=== PATIENT | male | born 1945 | race Caucasian/White ===

== ENCOUNTER → 2018-11-08 | Outpatient (CLI) | payer MEDICARE, OTHER ==
[2018-11-08 17:22] LABS: BILIRUBIN,DIRECT 0.2 MG/DL (0.0-0.3); BILIRUBIN,INDIRECT 0.3 MG/DL; BILIRUBIN,TOTAL 0.5 MG/DL (0.1-1.0)
[2018-11-08 17:23] LABS: ALBUMIN 4.2 GM/DL (3.2-4.5); TOTAL PROTEIN 7.5 GM/DL (6.4-8.2)
== END ==
LOC: LAB FS 15:16
PROVIDERS: ATTEND Podiatrist Foot & Ankle Surgery
DX: B35.1 Tinea unguium (principal)
CPT/HCPCS: 36415; 80076

== ENCOUNTER → 2020-02-08 | Outpatient (CLI) | payer MEDICARE, OTHER ==
--- NOTE | 2020-02-08 16:42 | Diagnostic Imaging Report ---
PROCEDURE: MRI left joint lower extremity without contrast. TECHNIQUE: Multiplanar, multisequence non contrast-enhanced MRI of the left lower extremity was accomplished. INDICATION: Pain in the left Achilles tendon. History of contralateral right Achilles rupture. COMPARISON: None FINDINGS: No acute fracture is seen in the left ankle. Alignment is normal. There is no joint effusion. The anterior and posterior syndesmotic ligaments are intact. The anterior and posterior talofibular ligaments are intact. The calcaneofibular ligament is suboptimally seen, but appears to be intact as well. The deep fibers of the deltoid ligament demonstrate calcification, which may be from remote trauma. No tear is seen in the spring ligament. The plantar fascia is not thickened. The sinus tarsi demonstrates normal fatty signal. There is a complete tear of the Achilles tendon, with approximately 2 cm of retraction. The distal stump is located about 7 cm from the calcaneal insertion. There is significant tendinosis in the Achilles tendon. The flexor tendons are intact. The peroneal tendons appear intact. The extensor tendons are intact. No muscular atrophy is seen. No masses or fluid collections are seen. There is severe subcutaneous edema about the ankle. IMPRESSION: 1. Complete tear of the Achilles tendon with mild retraction. 2. Severe nonspecific subcutaneous edema about the ankle. Dictated by: Dictated on workstation # [id number]
== END ==
LOC: RAD 15:17
PROVIDERS: ATTEND Podiatrist Foot & Ankle Surgery
DX: S86.012A Strain of left Achilles tendon, initial encounter (principal); X58.XXXA Exposure to other specified factors, initial encounter
CPT/HCPCS: 73721

== ENCOUNTER 2022-09-07 04:10 | Emergency (ER) | payer MEDICARE, OTHER ==
[2022-09-07] MEDS ORDERED: ANTACID SUSP 30 ML UDC (MYLANTA) PO ONE (04:30)
[2022-09-07] MEDS ORDERED: LIDOCAINE 2% VISCOUS 15 ML UDC PO ONE (04:30)
--- NOTE | 2022-09-07 04:33 | ED Abdominal Pain ---
General Chief Complaint: Abdominal/GI Problems Stated Complaint: PAIN UPPER RIGHT SHOULDER Nursing Triage Note: Pt complaining of epigastric pain and excessive belching Source of Information: Patient, Spouse History of Present Illness Date Seen by Provider: Sep 07, 2022 Time Seen by Provider: 04:14 Initial Comments 77-year-old male presenting with complaints of increased belching and epigastric pain going into the left chest since 1430. He denies eating or drinking anything different prior to this happening. His reports that he has been having episodes of vomiting for several hours at a time. His last episode like this was at the beginning of August. Patient reports he feels like the vomiting had gotten better when he was drinking more fluids and water. He has not followed up with the clinic for any of these episodes of vomiting. He denies any fever, chills, nausea or vomiting currently. He has had several bowel movements that were normal and consistency and not black or tarry in the last 24 hours. He denies having pain or burning with urination or seeing any blood in his stool or urine. He has not been coughing or having shortness of breath. When he lays down he had more of the pressure and sensation like he needed to belch. He had been uncomfortable all night so finally they came to the emergency department at after 13 hours of symptoms. He reports that the belching and epigastric pain has been constant since onset around 0 on TuesdaySeptember 06. Timing/Duration: 12-24 Hours Severity/Quality: Moderate, Full Radiation: Chest (left chest) Activities at Onset: None Modifying Factors: Worsens With Lying down; Improves With Other (belching helps the full sensation) Associated Symptoms: No Back Pain, No Diaphoresis, No Fever/Chills, No Fatigue, No Headache, No Heartburn, No Nausea/Vomiting, No Rash, No Shortness of Air, No Swelling/Mass in Abdomen, No Syncope, No Weakness Allergies and Home Medications Allergies Coded Allergies: No Known Drug Allergies (Unverified , 09/07/22) Patient Home Medication List Home Medication List Reviewed: Yes Sucralfate (Sucralfate) 1 Gram Tablet, 1 GM PO ACHS Prescribed by: DEBRA MCLEAN on 09/07/22 0620 Review of Systems Review of Systems Constitutional: No chills, No fever EENTM: No Symptoms Reported Respiratory: Denies Cough, Denies Shortness of Air Cardiovascular: See HPI; Denies Lightheadedness, Denies Palpitations Gastrointestinal: See HPI Genitourinary: No Symptoms Reported Musculoskeletal: no symptoms reported Skin: no symptoms reported Psychiatric/Neurological: No Symptoms Reported Past Kyfoulx-Alcvpo-Pwjizz Hx Patient Social History Tobacco Use?: No Use of E-Cig and/or Vaping dev: No Substance use?: No Alcohol Use?: No Pt feels they are or have been: No Past Medical History Surgery/Hospitalization HX: Hypertension, hyperlipidemia, GERD Surgeries: Yes Eye Surgery Physical Exam Vital Signs Vital Signs - First Documented 09/07/22 04:15 Pulse 50 Resp 18 B/P (MAP) 173/68 (103) Pulse Ox 97 O2 Delivery Room Air Capillary Refill : Less Than 3 Seconds Height/Weight/BMI Height: '" Weight: lbs. oz. kg; BMI Method: General Appearance: WD/WN, no apparent distress Respiratory: chest non-tender, lungs clear, normal breath sounds, no respiratory distress, no accessory muscle use Cardiovascular: normal peripheral pulses, regular rate, rhythm Gastrointestinal: normal bowel sounds, soft, no pulsatile mass; No distended, No guarding, No rebound; tenderness (Increased pressure and fullness with palpation over the epigastric area of the abdomen) Rectal: deferred Extremities: normal range of motion, non-tender, normal capillary refill Neurologic/Psychiatric: automobile bumper straightener II-XII nml as tested, alert, oriented x 3 Skin: normal color, warm/dry Images 1 - Increased fullness sensation with palpation over the epigastric area Progress/Results/Core Measures Results/Orders Lab Results Laboratory Tests Test 09/07/22 05:10 Range/Units White Blood Count 14.2 H 4.3-11.0 10^3/uL Red Blood Count 4.86 4.30-5.52 10^6/uL Hemoglobin 15.3 13.3-17.7 g/dL Hematocrit 45 40-54 % Mean Corpuscular Volume 93 80-99 fL Mean Corpuscular Hemoglobin 32 25-34 pg Mean Corpuscular Hemoglobin Concent 34 32-36 g/dL Red Cell Distribution Width 13.1 10.0-14.5 % Platelet Count 221 130-400 10^3/uL Mean Platelet Volume 9.4 9.0-12.2 fL Immature Granulocyte % (Auto) 1 % Neutrophils (%) (Auto) 85 H 42-75 % Lymphocytes (%) (Auto) 9 L 12-44 % Monocytes (%) (Auto) 4 0-12 % Eosinophils (%) (Auto) 1 0-10 % Basophils (%) (Auto) 1 0-10 % Neutrophils # (Auto) 12.0 H 1.8-7.8 10^3/uL Lymphocytes # (Auto) 1.3 1.0-4.0 10^3/uL Monocytes # (Auto) 0.6 0.0-1.0 10^3/uL Eosinophils # (Auto) 0.2 0.0-0.3 10^3/uL Basophils # (Auto) 0.1 0.0-0.1 10^3/uL Immature Granulocyte # (Auto) 0.1 0.0-0.1 10^3/uL Neutrophils % (Manual) 93 % Lymphocytes % (Manual) 6 % Monocytes % (Manual) 1 % Prothrombin Time 12.7 12.2-14.7 SEC INR Comment 0.9 0.8-1.4 Activated Partial Thromboplast Time 33 24-35 SEC Sodium Level 134 L 135-145 MMOL/L Potassium Level 4.8 3.6-5.0 MMOL/L Chloride Level 100 98-107 MMOL/L Carbon Dioxide Level 25 21-32 MMOL/L Anion Gap 9 5-14 MMOL/L Blood Urea Nitrogen 12 7-18 MG/DL Creatinine 0.97 0.60-1.30 MG/DL Estimat Glomerular Filtration Rate 79 BUN/Creatinine Ratio 12 Glucose Level 194 H 70-105 MG/DL Calcium Level 9.5 8.5-10.1 MG/DL Corrected Calcium 9.7 8.5-10.1 MG/DL Magnesium Level 1.8 1.6-2.4 MG/DL Total Bilirubin 0.6 0.1-1.0 MG/DL Aspartate Amino Transf (AST/SGOT) 20 5-34 U/L Alanine Aminotransferase (ALT/SGPT) 24 0-55 U/L Alkaline Phosphatase 115 40-136 U/L Troponin I < 0.30 <0.30 NG/ML Pro-B-Type Natriuretic Peptide 272.0 <450.0 PG/ML Total Protein 6.9 6.4-8.2 GM/DL Albumin 3.8 3.2-4.5 GM/DL Lipase 34 8-78 U/L My Orders Orders - DEBRA MCLEAN MD Lidocaine 2% Viscous 15 Ml (Xylocaine Vi (09/07/22 04:30) Antacid Suspension (Mylanta Suspension (09/07/22 04:30) Acute Abd Series (09/07/22 04:26) Lidocaine 2% Viscous 15 Ml (Xylocaine Vi (09/07/22 04:35) Antacid Suspension (Mylanta Suspension (09/07/22 04:35) Cbc With Automated Diff (09/07/22 05:08) Magnesium (09/07/22 05:08) Ekg Tracing (09/07/22 05:08) Comprehensive Metabolic Panel (09/07/22 05:08) Protime With Inr (09/07/22 05:08) Partial Thromboplastin Time (09/07/22 05:08) Monitor-Rhythm Ecg Trace Only (09/07/22 05:08) Ed Iv/Invasive Line Start (09/07/22 05:08) Lipase (09/07/22 05:08) Troponin I Fs (09/07/22 05:08) Probnp Fs (09/07/22 05:08) Pantoprazole Injection (Protonix Injecti (09/07/22 05:08) Ketorolac Injection (Toradol Injection) (09/07/22 05:08) Manual Differential (09/07/22 05:10) Sucralfate Tablet (Carafate Tablet) (09/07/22 06:17) Medications Given in ED Current Medications Medications Dose Ordered Sig/Ruby Route Start Time Stop Time Status Last Admin Dose Admin Al Hydrox/Mg Hydrox/Simethicone 30 ml ONCE ONCE PO 09/07/22 04:30 09/07/22 04:31 DC 09/07/22 04:36 30 ML Lidocaine HCl 15 ml ONCE ONCE PO 09/07/22 04:30 09/07/22 04:31 DC 09/07/22 04:36 15 ML Vital Signs/I&O 09/07/22 09/07/22 04:15 06:08 Pulse 50 54 Resp 18 18 B/P (MAP) 173/68 (103) 151/58 Pulse Ox 97 94 O2 Delivery Room Air Room Air Blood Pressure Mean: 103 Progress Progress Note #1: Progress Note Potential diagnosis of GERD with esophagitis, esophageal spasms, hiatal hernia, bowel obstruction, colitis, diverticulitis, cholecystitis, myocardial infarction, congestive heart failure, acute coronary syndrome. As the symptoms have been present for almost 14 hours and have been constant will start with an acute abdomen series and a GI cocktail to see if it looks like he had evidence of a hiatal hernia and/or improvement with GI cocktail. If he does not have any acute improvement or acute significant abnormality on his imaging we will add on peripheral IV access and check labs to look at blood count, comprehensive metabolic profile, lipase, troponin, proBNP and obtain el ectrocardiogram. However since his pain has been present for so long I would expect if he was having acute coronary syndrome or myocardial infarction he would have had worsening symptoms or change in his vital signs by now. Progress Note #2: Time: 05:00 Progress Note On my personal interpretation and review of his acute abdomen series I did not appreciate any gastric air bubble in his chest indicating a hiatal hernia. Also did not appreciate any bowel obstruction or signs of free air or perforation. Patient reported that after the GI cocktail his discomfort and pressure in the chest was better but is still had pressure and fullness in his epigastric and left upper quadrant area of his abdomen. With him continuing to have symptoms although they are better will add on an electrocardiogram and labs as discussed above. We will administer Protonix 40 mg IV in addition to Toradol 15 mg IV to see if that helps with his discomfort and pressure. Since he has had symptoms for over 14 hours a single troponin would be a delta troponin for him since he has had constant discomfort for more than 6 hours. Progress Note #3: Time: 05:51 Progress Note Complete blood count showed mild elevation of his white blood cells to 14.2 but he did not have a left shift. His hemoglobin was normal at 15.3 and platelets at 221. His comprehensive metabolic panel did not show any acute significant electrolyte abnormality other than he did have an elevated glucose of 194. His troponin was less than 0.3 and negative. His proBNP was normal at 272. His lipase was not normal at 34 not elevated to indicate pancreatitis. As patient was resting in the room after he had received the Protonix and Toradol he did have his oxygen saturation dipping down to 89 to 90% which might indicate some obstructive sleep apnea. When he was awoken his oxygen immediately came back up to mid to upper 90s. We will reassure patient and spouse that we did not see any evidence of acute myocardial infarction or heart attack or heart failure. He does have the elevated glucose so we will encourage him to follow-up with the clinic as they may want to do fasting labs or get additional testing. He may also benefit from an EGD to look for signs of peptic ulcer disease or esophagitis. If his symptoms persist or worsen he may return in a CT scan might be helpful to look for signs of intra-abdominal pathology. However with his symptoms improving with treatment and only finding a mild elevation of his white count and glucose on his labs and felt that he was safe to be discharged home and could complete any further work-up as an outpatient with his primary care provider. Initial ECG Impression Date: Sep 07, 2022 Initial ECG Impression Time: 05:12 Initial ECG Rate: 50 Initial ECG Rhythm: S.Bandar Initial ECG Comparisson: No Previous ECG Available Comment On my personal interpretation and review his initial electrocardiogram shows sinus bradycardia with a heart rate of 50 bpm. VA interval [address] elevation however he does have some global T wave flattening. QT interval 455 ms with a QTc interval 429 ms. He has no prior tracings available for comparison. Diagnostic Imaging Diagonstic Imaging: Xray Plain Films/CT/US/NM/MRI: chest, abdomen Comments [facility]. [place], [place] NAME: ALICIA GARCIA [facility] REC#: [id number] PT STATUS: REG ER : 1945 PHYSICIAN: DEBRA MCLEAN MD ADMIT DATE: 09/07/22/ER FS Draft Date of Exam:09/07/22 ACUTE ABD SERIES HISTORY: Left upper quadrant pain TECHNIQUE: Frontal view of the chest. Supine and upright frontal views of the abdomen COMPARISON: None FINDINGS: Lung volumes are normal. No consolidation is seen. There is no pleural effusion or pneumothorax. The cardiac silhouette is normal in size. The bowel loops are nonspecific, but no high-grade distention is appreciated. No large collection of free air seen. Overall, the stool burden appears low. A surgical clip is noted in the pelvis. No acute osseous abnormality is seen. IMPRESSION: 1. Nonspecific bowel gas pattern with no acute abdominal abnormality seen. 2. No acute pulmonary abnormality. Dictated on workstation # [id number] Dict: 09/07/22 0556 Trans: 09/07/22 0602 GILBERTO [id number] Interpreted by: LETA GAITAN MD Electronically signed by: Reviewed: Reviewed by Me Departure Impression Primary Impression: Belching Additional Impressions: Epigastric abdominal pain Elevated glucose Disposition: HOME, SELF-CARE Condition: Improved Departure-Patient Inst. Decision time for Depature: 06:18 Referrals: KATIE AGOSTO MD (PCP/Family) Primary Care Physician Patient Instructions: Acid Reflux, Adult and Adolescent ED, Gastritis ED, Guide to Eating When You Have Diabetes, Prediabetes (DC), Ulcer and Gastritis Diet Add. Discharge Instructions: Your labs did show mild elevation of your sugar up to 194. Usually fasting this should be less than 110. The elevated sugar might be contributing to your episodes of vomiting and discomfort in your epigastric and stomach area. Check back with the clinic as they may need to set you up for additional testing or medication to try and help with the high sugar. They may also want to have you see a surgeon for an EGD where they run a camera down your throat to look for signs of ulcers or irritation to the stomach and esophagus lining. Follow a low-fat bland diet. If you are having worsening symptoms or uncontrollable vomiting then return for repeat evaluation. Otherwise call the clinic on Tuesday to arrange a follow- up appointment for additional work-up as an outpatient. All discharge instructions reviewed with patient and/or family. Voiced understan stephen. Scripts Sucralfate (Sucralfate) 1 Gram Tablet 1 GM PO ACHS for Gastritis for 14 Days, #56 TAB 1 Refill Chew tablet to a slurry and then swallow Prov: DEBRA MCLEAN MD 09/07/22 DEBRA MCLEAN MD Sep 07, 2022 04:32
[2022-09-07] MEDS ORDERED: ANTACID SUSP 30 ML UDC (MYLANTA) ONE (04:35)
[2022-09-07] MEDS ORDERED: LIDOCAINE 2% VISCOUS 15 ML UDC ONE (04:35)
[2022-09-07] MEDS ORDERED: KETOROLAC 15 MG/ML VIAL IVP STA (05:08)
[2022-09-07] MEDS ORDERED: PANTOPRAZOLE 40 MG (PROTONIX) VIAL IV STA (05:08)
[2022-09-07 05:19] LABS: BASOPHILS # (AUTO) 0.1 10^3/uL (0.0-0.1); BASOPHILS % (AUTO) 1 % (0-10); EOSINOPHILS # (AUTO) 0.2 10^3/uL (0.0-0.3); EOSINOPHILS % (AUTO) 1 % (0-10); HEMATOCRIT 45 % (40-54); HEMOGLOBIN 15.3 g/dL (13.3-17.7); LYMPHOCYTES # (AUTO) 1.3 10^3/uL (1.0-4.0); LYMPHOCYTES % (AUTO) 9 % (12-44); MEAN CORPUSCULAR HEMOGLOBIN 32 pg (25-34); MEAN CORPUSCULAR HGB CONC 34 g/dL (32-36); MEAN CORPUSCULAR VOLUME 93 fL (80-99); MEAN PLATELET VOLUME 9.4 fL (9.0-12.2); MONOCYTES # (AUTO) 0.6 10^3/uL (0.0-1.0); MONOCYTES % (AUTO) 4 % (0-12); NEUTROPHILS % (AUTO) 85 % (42-75); PLATELET COUNT 221 10^3/uL (130-400); WHITE BLOOD COUNT 14.2 10^3/uL (4.3-11.0)
[2022-09-07 05:34] LABS: INR 0.9 (0.8-1.4); LYMPHOCYTES % (MANUAL) 6 %; MONOCYTES % (MANUAL) 1 %; NEUTROPHILS % (MANUAL) 93 %; PROTHROMBIN TIME PATIENT 12.7 SEC (12.2-14.7)
[2022-09-07 05:43] LABS: ALKALINE PHOSPHATASE 115 U/L (40-136); BILIRUBIN,TOTAL 0.6 MG/DL (0.1-1.0); BUN/CREATININE RATIO 12; CALCIUM 9.5 MG/DL (8.5-10.1); CARBON DIOXIDE 25 MMOL/L (21-32); CHLORIDE 100 MMOL/L (98-107); CREATININE SERUM 0.97 MG/DL (0.60-1.30); GFR ESTIMATED 79; GLUCOSE 194 MG/DL (70-105); MAGNESIUM 1.8 MG/DL (1.6-2.4); POTASSIUM 4.8 MMOL/L (3.6-5.0); SODIUM 134 MMOL/L (135-145)
[2022-09-07 05:44] LABS: ALANINE AMINOTRANSFERASE 24 U/L (0-55); ALBUMIN 3.8 GM/DL (3.2-4.5); LIPASE 34 U/L (8-78); TOTAL PROTEIN 6.9 GM/DL (6.4-8.2)
--- NOTE | 2022-09-07 06:03 | Diagnostic Imaging Report ---
HISTORY: Left upper quadrant pain TECHNIQUE: Frontal view of the chest. Supine and upright frontal views of the abdomen COMPARISON: None FINDINGS: Lung volumes are normal. No consolidation is seen. There is no pleural effusion or pneumothorax. The cardiac silhouette is normal in size. The bowel loops are nonspecific, but no high-grade distention is appreciated. No large collection of free air seen. Overall, the stool burden appears low. A surgical clip is noted in the pelvis. No acute osseous abnormality is seen. IMPRESSION: 1. Nonspecific bowel gas pattern with no acute abdominal abnormality seen. 2. No acute pulmonary abnormality. Dictated by: Dictated on workstation # [id number]
[2022-09-07 06:08] VITALS: BP 151/58
[2022-09-07] MEDS ORDERED: SUCRALFATE 1 GM (CARAFATE) TAB PO STA (06:17)
[2022-09-07] MEDS ORDERED: SUCR1TAB PO (06:20)
== END 2022-09-07 06:22 | disposition home or self-care (01) ==
LOC: EDUNIT# 04:10 → ER FS 04:12
DX: R10.13 Epigastric pain (principal); R14.2 Eructation; R73.9 Hyperglycemia, unspecified; D72.829 Elevated white blood cell count, unspecified; Z28.310 Unvaccinated for COVID-19
CPT/HCPCS: 36415; 74022; 80053; 83690; 83735; 83880; 84484; 85007; 85027; 85610; 85730; 93005; 93041